=== PATIENT | male | born 1975 | race Caucasian/White ===

== ENCOUNTER 2019-06-01 13:16 | Inpatient (IN) | payer OTHER ==
[~2019-06-01] VITALS: Ht 182.9 cm; Wt 77.1 kg
[2019-06-01] MEDS ORDERED: OXYC1TAB9 (15:24)
[2019-06-01] MEDS ORDERED: FENTANYL1 EAC5 (15:24)
[2019-06-01] MEDS ORDERED: CLONAZEPAM1 MG (15:25)
[2019-06-01] MEDS ORDERED: XTANDI40 MG (15:25)
[2019-06-01] MEDS ORDERED: BICALUTAMIDE50 MG (15:25)
[2019-06-01] MEDS ORDERED: QUETIAPINE FUM400 MG (15:25)
[2019-06-03] MEDS ORDERED: CLONAZEPAM1 MG PO (17:42)
[2019-06-03] MEDS ORDERED: FENTANYL1 EAC5 TOP (17:45)
[2019-06-03] MEDS ORDERED: DEXAMETHASONE4 MG PO (17:47)
[2019-06-03] MEDS ORDERED: FOLIVANE-PLUS1 EACH PO (17:49)
== END 2019-06-03 18:28 | disposition home or self-care (01) | DRG 723 ==
LOC: SURH 13:16 → O/R 13:16 → SEC-K 15:16 → SURH 16:20
PROVIDERS: ADMIT Internal Medicine Hematology & Oncology
PROC: 30233N1 Transfusion of Nonautologous Red Blood Cells into Peripheral Vein, Percutaneous Approach (ICD-10-PCS; principal; 2019-06-02)
PROC: 8E0ZXY6 Isolation (ICD-10-PCS; 2019-06-02)
DX: C63.7 Malignant neoplasm of other specified male genital organs (principal); C77.2 Secondary and unspecified malignant neoplasm of intra-abdominal lymph nodes; C79.51 Secondary malignant neoplasm of bone; R64 Cachexia; D63.0 Anemia in neoplastic disease; R63.0 Anorexia; G89.3 Neoplasm related pain (acute) (chronic)

== ENCOUNTER 2020-06-08 15:00 | Inpatient (IN) | payer OTHER ==
[~2020-06-08 15:00] MED LIST: BICALUTAMIDE50 MG; CLONAZEPAM1 MG; CLONAZEPAM1 MG PO; DEXAMETHASONE4 MG PO; FENTANYL1 EAC5; FENTANYL1 EAC5 TOP; FOLIVANE-PLUS1 EACH PO; OXYC1TAB9; QUETIAPINE FUM400 MG PO; XTANDI40 MG
[2020-06-09] MEDS ORDERED: CLONAZEPAM1 MG PO (08:20)
[2020-06-09] MEDS ORDERED: GABAPENTIN600 MG PO (08:22)
[2020-06-13] MEDS ORDERED: CYMBALTA30 MG PO (10:01)
[2020-06-13] MEDS ORDERED: GABAPENTIN600 MG PO (10:01)
[2020-06-13] MEDS ORDERED: FENTANYL1 EAC4 TD (10:02)
[2020-06-13] MEDS ORDERED: PROTEINEX-18 LI30 ML PO (10:03)
[2020-06-13] MEDS ORDERED: FAMOTIDINE20 MG PO (10:03)
== END 2020-06-13 13:52 | disposition home health service (06) | DRG 723 ==
LOC: SEC-K 15:00 → SURG 20:54 → SURH 06-12 13:02
PROVIDERS: ADMIT Internal Medicine Hematology & Oncology; ATTEND Internal Medicine Hematology & Oncology
PROC: 30233N1 Transfusion of Nonautologous Red Blood Cells into Peripheral Vein, Percutaneous Approach (ICD-10-PCS; principal; 2020-06-09)
PROC: CW1N1ZZ Planar Nuclear Medicine Imaging of Whole Body using Technetium 99m (Tc-99m) (ICD-10-PCS; 2020-06-09)
DX: C61 Malignant neoplasm of prostate (principal); E44.0 Moderate protein-calorie malnutrition; C77.2 Secondary and unspecified malignant neoplasm of intra-abdominal lymph nodes; C79.51 Secondary malignant neoplasm of bone; D63.0 Anemia in neoplastic disease; E86.0 Dehydration; F41.8 Other specified anxiety disorders; G89.3 Neoplasm related pain (acute) (chronic); Z20.828 Contact with and (suspected) exposure to other viral communicable diseases
CPT/HCPCS: 240